=== PATIENT | female | born 1985 | race Asian ===

== ENCOUNTER 2024-07-05 08:52 | Outpatient (AMB) | payer OTHER, SELFPAY ==
--- NOTE | 2024-07-05 08:54 | A.OFFPC_ITS ---
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 Intake Note: New patient visit Pre Coder Required: No Allergies No Known Allergies Allergy (Verified 07/05/24 09:00) Medication List - Last Reconciled 07/05/24 by Ann Marie Mcneil PA-C carbamide peroxide 6.5% (Debrox) 5 drps otic (ears) Q12H 7 days multivitamin 1 tab PO DAILY Tobacco use date assessed: 07/05/24 Dental Screening Dental Screen Date: 07/05/24 Did you have a dental visit in the last 12 months?: Yes Did you have a dental problem in the last 6 months where you did not have access to dental care?: No Was dental information given to patient?: Patient has dentist 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 She has a hx of hyperlipidemia, she has a hx of right ankle fracture and now arthritis. -she does report feeling like her ears b lock sometimes while swimming. No pain, drainage, fevers or chills. No sinus pain or pressure. No decreased hearing. CV: she monitors diet to control cholesterol. Never needed to take medications. She states that the history of hypertension makes her nervous because her has a strong family history of heart attacks. She states that her mother, grandparents and aunts and uncles on her mom's side have had heart attacks. Her brother is currently undergoing a cardiac workup for chest pain. She denies any chest pain, shortness on breath or palpitations. States that she feels overall fine. 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 She has not really had primary care health care and states mostly followed with her air defence officer. 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 Family history: mother- CT, maternal grandmother- CT, maternal grandfather- CT, father- T2DM, Paternal grandmother-T2DM [facility] Medical History (Updated 07/05/24 @ 11:08 by Ann Marie Mcneil, PA-C) Arthritis associated with erythema multiforme High cholesterol Family History (Updated 07/05/24 @ 09:09 by Bhargavi Beltran CMA) Father Asthma High cholesterol Diabetes Mother High cholesterol Diabetes Cardiovascular disease Maternal Grandmother High cholesterol Paternal Grandfather High cholesterol Maternal Grandfather High cholesterol Social History (Updated 07/05/24 @ 09:02 by Bhargavi Beltran CMA) Housing: House Patient Tobacco Use Status: Never used Tobacco e-Cigarette/Vaping Use: Never Used Second Hand Smoke Exposure: No Use of substances other than those prescribed or required for medical reasons: No service: No 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 1. Little interest or pleasure in doing things: not at all 2. Feeling down, depressed, or hopeless: not at all 3. Trouble falling or staying asleep, or sleeping too much: not at all 4. Feeling tired or having little energy: not at all 5. Poor appetite or overeating: not at all 6. Feeling bad about yourself - or that you are a failure or have let yourself or your family down: not at all 7. Trouble concentrating on things, such as reading the newspaper or watching television: not at all 8. Moving or speaking so slowly that other people could have noticed. Or the opposite - being so fidgety or restless that you have been moving around a lot more than usual: not at all 9. Thoughts that you would be better off or of hurting yourself in some way: not at all Total score: 0 Depression Screening Interpretation: Negative Depression Screening Done: Yes 48947 - PHQ-9 Billing: Yes Source: Developed by Drs. Eulalio Tipton, Damaris Saravia, Hernandez Bolden and colleagues, with an educational sarika from [employer]. Thrive Questionnaire Date Thrive assessed: 07/05/24 I am a: Patient What is your living situation today?: I have a steady place to live Within the past 12 months, did the food you bought not last and you didn't have the money to get more?: Never true Within the past 12 months, did you worry whether your food would run out before you got money to buy more?: Never true Do you have trouble paying for medicines?: No Do you have trouble getting transportation to medical appointments?: No Do you have trouble paying your heating and electricity bill?: No Do you have trouble taking care of your child, family member or friend?: No Do you have trouble with day-to-day activities such as bathing, preparing meals, shopping, managing finances, etc.?: No Are you currently unemployed and looking for a job?: No Are you interested in more education?: No Please select the resources that you would like help with: None Currently or been in a relationship where the following occur: No concerns reported THRIVE Score: 0 AUDIT C Alcohol Use Questionnaire (AUDIT-C) 1. How often do you have a drink containing alcohol?: Never 3. How often do you have six or more drinks on one occasion?: Never Total Score: 0 Score Reviewed/Action Taken: Yes SANJEEV-7 AMB Questionnaire SANJEEV-7 Date SANJEEV - 7 assessed: 07/05/24 Feeling nervous, anxious, or on edge: 0 = Not at all Not being able to stop or control worryin = Not at all Worrying too much about different things: 0 = Not at all Trouble relaxin = Not at all Being so restless that it is hard to sit still: 0 = Not at all Becoming easily annoyed or irritable: 0 = Not at all Feeling afraid as if something awful might happen: 0 = Not at all Total SANJEEV-7 score (0-4 normal; 5-9 mild; 10-14 moderate; 15-21 severe): 0 Source: Developed by Drs. Eulalio Tipton, Damaris Saravia, Hernandez Bolden and colleagues, with an educational sarika from [employer]. SANJEEV-7 Assessment Billing SANJEEV-7 Assessment Tool: SANJEEV-7 Assessment 64086 Physical exam (Primary Care) Vital Signs: Last Vital Signs Temp 98.4 F 07/05/24 09:03 Pulse 54 07/05/24 09:03 Resp 12 07/05/24 09:03 BP 94/64 07/05/24 09:03 Pulse Ox 99 07/05/24 09:03 Oxygen Delivery Method Room Air 07/05/24 09:03 BMI result Body Mass Index 26.3 Tobacco/Smoking Status: Tobacco use Status Tobacco use date assessed 07/05/24 07/05/24 09:03 Patient Tobacco Use Status Never used Tobacco 07/05/24 09:03 e-Cigarette/Vaping Use Never Used 07/05/24 09:03 PHQ-9: PHQ-9 Score PHQ-9: Total score 0 07/05/24 09:10 Depression Screening Interpretation: Negative Thrive Assessment: Date of Thrive Assessment Date Thrive assessed 07/05/24 07/05/24 09:10 Currently or been in a relationship where the following occur: No concerns reported Const Orientation/consciousness: patient oriented x3 HENMT Other: TM on right unable to be visualized due to cerumen impaction Ears: hearing grossly normal bilaterally and TM normal on the left General nose exam: No nasal polyps present Face and sinus: Yes sinuses nontender Mouth: Normal oral and palatal mucosa present Eyes Pupils: Equal, round and reactive pupils present EOM: EOMs intact bilaterally Neck Neck: Yes full ROM and Yes no lymphadenopathy Thyroid: Thyroid normal Chest Chest palpation & inspection: normal inspection of the chest Resp Auscultation: clear to auscultation bilaterally Cardio Rate: regular rate Rhythm: regular rhythm Heart sounds: S1 normal heart sound present and S2 normal heart sound present Peripheral pulses: Peripheral pulses 2+ throughout GI Other: Soft, nontender Auscultation: normal bowel sounds Rectal Exam - Female: deferred General: Yes no CVA tenderness Back/Spine/Pelvis Other: Nontender Back: no CVA tenderness Skin General skin exam: no rashes or lesions noted Neuro General: patient oriented x3, gait normal, CN's II-XI intact bilaterally and deep tendon reflexes 2+ bilaterally Cranial nerves: Yes Equal, round and reactive pupils present Motor exam (neuro): 5/5 motor strength present throughout Sensory Exam: double simultaneous stimulation for sensation normal Coordination: [id number]-[id number] test normal and Romberg test negative Extrem General: Yes normal to inspection and Yes full ROM Psych Affect: normal affect Attitude: cooperative Thought process: Normal thought process present Thought content: Normal thought content present Insight: Good insight present (Psych) Judgement: Good judgement present (Psych) Assessment and Plan Assessment & Plan (1) Routine general medical examination at a health care facility: Code(s): Z00.00 - Encounter for general adult medical examination without abnormal findings Plan: Health maintenance reviewed. Labs ordered today. We will follow up pending test results. (2) Hyperlipidemia: Code(s): E78.5 - Hyperlipidemia, unspecified Qualifiers: Hyperlipidemia type: mixed hyperlipidemia Qualified Code(s): E78.2 - Mixed hyperlipidemia Plan: Labs ordered. We will follow up with test results. (3) Family history of CT (myocardial infarction): Code(s): Z82.49 - Family history of ischemic heart disease and other diseases of the circulatory system Plan: She is asymptomatic. She would like the CT calcium screen. (4) Family history of type 2 diabetes mellitus: Code(s): Z83.3 - Family history of diabetes mellitus Plan: Labs ordered including A1c (5) Impacted cerumen, left ear: Code(s): H61.22 - Impacted cerumen, left ear Plan: Debrox drops ordered. Advised to follow up if no improvement or if anything worsens or changes. Patient understands and agrees with the plan. Orders: Orders TSH reflex Free T4 Today E78.5 - Hyperlipidemia, unspecified, Z82.49 - Family history of ischemic heart disease and other diseases of the circulatory system, Z83.3 - Family history of diabetes mellitus Magnesium Today E78.5 - Hyperlipidemia, unspecified, Z82.49 - Family history of ischemic heart disease and other diseases of the circulatory system, Z83.3 - Family history of diabetes mellitus Vitamin D 1,25 dihydroxy Today E78.5 - Hyperlipidemia, unspecified, Z82.49 - Family history of ischemic heart disease and other diseases of the circulatory system, Z83.3 - Family history of diabetes mellitus Hemoglobin A1c Today E78.5 - Hyperlipidemia, unspecified, Z82.49 - Family history of ischemic heart disease and other diseases of the circulatory system, Z83.3 - Family history of diabetes mellitus CT Coronary Calcium Score Today E78.5 - Hyperlipidemia, unspecified, Z82.49 - Family history of ischemic heart disease and other diseases of the circulatory system Complete Blood Count Auto Diff Today E78.5 - Hyperlipidemia, unspecified, Z82.49 - Family history of ischemic heart disease and other diseases of the circulatory system, Z83.3 - Family history of diabetes mellitus Comprehensive [place]. Panel Fast Today E78.5 - Hyperlipidemia, unspecified, Z82.49 - Family history of ischemic heart disease and other diseases of the circulatory system, Z83.3 - Family history of diabetes mellitus Lipid Panel Today E78.5 - Hyperlipidemia, unspecified, Z82.49 - Family history of ischemic heart disease and other diseases of the circulatory system, Z83.3 - Family history of diabetes mellitus Medications: New carbamide peroxide 6.5% (Debrox) 5 drps otic (ears) Q12H 15 mL 0RF 7 days Coding Level of Care Code New Pt Prev Care 18-39yr(52099 Diagnoses Routine general medical examination at a health care facility Z00.00 Mixed hyperlipidemia E78.2 Hyperlipidemia type: mixed hyperlipidemia Family history of CT (myocardial infarction) Z82.49 Family history of type 2 diabetes mellitus Z83.3 Impacted cerumen, left ear H61.22 Additional Codes SNAJEEV-7 Assessment Billing - SANJEEV-7 Assessment Tool: SANJEEV-7 Assessment 27610 ([id number])
[2024-07-05 09:03] VITALS: BP 94/64; PULSE 54; RESP 12; TEMP 36.9; O2SAT 99; BMI 26.3
== END 2024-07-05 09:36 | disposition home or self-care (01) ==
PROVIDERS: PCP Physician Assistant; Visit Provider Physician Assistant
DX: Z00.00 Encounter for general adult medical examination without abnormal findings (principal); E78.2 Mixed hyperlipidemia; H61.22 Impacted cerumen, left ear; Z82.49 Family history of ischemic heart disease and other diseases of the circulatory system; Z83.3 Family history of diabetes mellitus
CPT/HCPCS: 99385

== ENCOUNTER 2024-07-07 08:33 | Outpatient (REF) | payer OTHER, SELFPAY ==
[2024-07-07 08:52] LABS: MANUAL DIFF FLAG NO
[2024-07-07 09:23] LABS: Basophils Percent Auto 0.7 % (0-2); Eosinophils Absolute Auto 0.2 X10*3/uL (0.0-0.4); Eosinophils Percent Auto 4.1 % (0-4); Hematocrit 39.1 % (37.0-47.0); Hemoglobin 13.2 g/dl (12.0-16.0); Imm Gran Abs Auto 0.01 X10*3/uL (0.00-0.03); Imm Gran Pct Auto 0.2 % (0.0-0.4); Lymphocytes Absolute Auto 1.8 X10*3/uL (1.2-4.9); Lymphocytes Percent Auto 30.4 % (20-40); Mean Corpuscular HGB Conc 33.8 g/dl (31.0-35.0); Mean Corpuscular Hemoglobin 27.8 pg (27.0-33.0); Mean Corpuscular Volume 82.3 fL (80.0-98.0); Mean Platelet Volume 10.2 fL (9.4-12.3); Monocytes Absolute Auto 0.4 X10*3/uL (0.1-1.2); Monocytes Percent Auto 6.4 % (2-11); Neutrophils Absolute Auto 3.5 x10*3/uL (2.0-8.3); Neutrophils Percent Auto 58.2 % (45-73); Platelet Count 261 X10*3/uL (160-400); Red Blood Count 4.75 X10*6/uL (4.20-5.50); Red Cell Distribution Width 12.7 % (11.0-16.0); White Blood Count 5.9 X10*3/uL (4.8-10.8)
[2024-07-07 09:31] LABS: Estimated Average Glucose 108 mg/dL; Hemoglobin A1c % 5.4 % (<6.0)
[2024-07-07 10:02] LABS: Alanine Aminotransferase 9 U/L (0-31); Albumin Level 4.4 g/dL (3.5-5.0); Alkaline Phosphatase 44 U/L (39-117); Anion Gap 12 (12-20); Aspartate Amino Transferase 14 U/L (5-31); Bilirubin Total 0.5 mg/dL (0.0-1.0); Blood Urea Nitrogen 9 mg/dL (9-16); Carbon Dioxide 25 mmol/L (22-29); Chloride 107 mmol/L (96-108); Cholesterol 260 mg/dL (<200); Estimated Glomerular Filt Rate > 60; Glucose Fasting 94 mg/dL (60-99); HDL Cholesterol 51 mg/dL (>40); LDL Cholesterol Calculated 192 mg/dL (<100); Magnesium 2.2 mg/dL (1.6-2.6); Sodium 139 mmol/L (135-145); Total Protein 7.6 g/dL (6.5-8.0); Triglycerides 87 mg/dL (<150)
[2024-07-07 10:17] LABS: TSH reflex Free T4 1.85 uIU/mL (0.32-4.0)
[2024-07-13 16:38] LABS: VITAMIN D (1,25 OH) D3 38 pg/mL; Vit D (1,25-Dihydroxy) Total 38 pg/mL (18-72); Vitamin D (1,25 OH) D2 <8 pg/mL
== END 2024-07-07 08:34 | disposition home or self-care (01) ==
LOC: HO.LAB 08:33
PROVIDERS: PCP Physician Assistant; Visit Provider Physician Assistant
DX: E78.5 Hyperlipidemia, unspecified (principal); Z82.49 Family history of ischemic heart disease and other diseases of the circulatory system; Z83.3 Family history of diabetes mellitus; Z13.1 Encounter for screening for diabetes mellitus
CPT/HCPCS: 36415; 80053; 80061; 82652; 83036; 83735; 84443; 85025

== ENCOUNTER 2025-03-27 09:21 | Outpatient (REF) | payer OTHER, SELFPAY ==
[2025-03-27 09:53] LABS: MANUAL DIFF FLAG NO
[2025-03-27 11:17] LABS: Appearance Urine Clear; Color Urine Yellow; Glucose Urine UA Negative (Negative); Leukocyte Esterase Urine Small (1+) (Negative); Nitrite Urine Negative (Negative); PH 6.5 (5.0-9.0); UMIC TRIGGER UACC YES; Urine Blood Negative (Negative); Urine Ketones Negative (Negative); Urine Protein Negative (Neg-Trace)
[2025-03-27 11:18] LABS: Basophils Absolute Auto 0.1 X10*3/uL (0.0-0.2); Eosinophils Absolute Auto 0.3 X10*3/uL (0.0-0.4); Hematocrit 38.5 % (37.0-47.0); Hemoglobin 12.5 g/dl (12.0-16.0); Imm Gran Abs Auto 0.01 X10*3/uL (0.00-0.03); Imm Gran Pct Auto 0.2 % (0.0-0.4); Lymphocytes Absolute Auto 1.8 X10*3/uL (1.2-4.9); Lymphocytes Percent Auto 34.6 % (20-40); Mean Corpuscular HGB Conc 32.5 g/dl (31.0-35.0); Mean Corpuscular Hemoglobin 27.6 pg (27.0-33.0); Mean Platelet Volume 10.2 fL (9.4-12.3); Monocytes Absolute Auto 0.5 X10*3/uL (0.1-1.2); Monocytes Percent Auto 8.7 % (2-11); Neutrophils Absolute Auto 2.6 x10*3/uL (2.0-8.3); Neutrophils Percent Auto 50.5 % (45-73); Platelet Count 260 X10*3/uL (160-400); Red Blood Count 4.53 X10*6/uL (4.20-5.50); Red Cell Distribution Width 13.3 % (11.0-16.0); White Blood Count 5.2 X10*3/uL (4.8-10.8)
[2025-03-27 11:24] LABS: Estimated Average Glucose 105 mg/dL; Hemoglobin A1c % 5.3 % (<6.0)
[2025-03-27 11:31] LABS: Bacteria Urine None Seen (None Seen); Hyaline Casts Urine 0-2 /LPF (0-2); RBC Urine 0-2 /HPF (0-2); UACC Culture Trigger YES; WBC Urine 0-5 /HPF (0-5)
[2025-03-27 12:02] LABS: Alanine Aminotransferase 22 U/L (0-31); Albumin Level 4.6 g/dL (3.5-5.0); Alkaline Phosphatase 42 U/L (39-117); Anion Gap 10 (12-20); Aspartate Amino Transferase 25 U/L (5-31); Bilirubin Total 0.4 mg/dL (0.0-1.0); Blood Urea Nitrogen 8 mg/dL (9-16); Calcium 9.5 mg/dL (8.4-10.2); Carbon Dioxide 28 mmol/L (22-29); Chloride 105 mmol/L (96-108); Cholesterol 260 mg/dL (<200); Estimated Glomerular Filt Rate > 60; Glucose Fasting 84 mg/dL (60-99); HDL Cholesterol 57 mg/dL (>40); LDL Cholesterol Calculated 185 mg/dL (<100); Potassium 4.2 mmol/L (3.3-5.1); Sodium 139 mmol/L (135-145); Total Protein 7.7 g/dL (6.5-8.0); Triglycerides 93 mg/dL (<150)
[2025-03-27 12:07] LABS: TSH reflex Free T4 1.75 uIU/mL (0.32-4.0)
== END 2025-03-27 09:22 | disposition home or self-care (01) ==
LOC: HO.LAB 09:21
PROVIDERS: PCP Physician Assistant; Visit Provider Physician Assistant
DX: Z00.00 Encounter for general adult medical examination without abnormal findings (principal); R73.01 Impaired fasting glucose; Z83.3 Family history of diabetes mellitus; Z82.49 Family history of ischemic heart disease and other diseases of the circulatory system; E78.2 Mixed hyperlipidemia; R30.0 Dysuria
CPT/HCPCS: 36415; 80053; 80061; 81001; 83036; 84443; 85025; 87086

== ENCOUNTER 2025-07-16 08:27 | Outpatient (AMB) | payer OTHER, SELFPAY ==
--- NOTE | 2025-07-16 08:30 | A.OFFVIS_ITS ---
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 The patient reports a history of hyperlipidemia for over ten years, initially identified in her 20s during routine annual blood tests. Her LDL cholesterol levels have been consistently high, with recent measurements showing 192 mg/dL and 185 mg/dL. The patient has attempted lifestyle modifications without significant improvement, and there is a family history of hyperlipidemia on her mother's side. No cardiac symptoms or prior cardiac history. [facility] Medical History (Updated 07/05/24 @ 11:08 by Ann Marie Mcneil PA-C) Arthritis associated with erythema multiforme High cholesterol Surgical History (Updated 07/16/25 @ 08:37 by Josephine Johnson) History of ankle surgery Family History (Updated 07/05/24 @ 09:09 by Bhargavi Beltran CMA) Father Asthma High cholesterol Diabetes Mother High cholesterol Diabetes Cardiovascular disease Maternal Grandmother High cholesterol Paternal Grandfather High cholesterol Maternal Grandfather High cholesterol Social History (Updated 07/16/25 @ 08:38 by Josephine Johnson) Housing: House Alcohol intake: never Patient Tobacco Use Status: Never used Tobacco e-Cigarette/Vaping Use: Never Used Second Hand Smoke Exposure: No service: No 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 Current occupational exposures/hazards: No Cognitive needs: No Hearing needs: No Vision needs: No Review of Systems Const Denies weakness ENT Denies dizziness Card Denies chest pain, Denies chest pain with activity, Denies syncope, Denies rapid heart rate, Denies pedal edema, Denies edema, Denies leg edema, Denies lightheadedness, Denies palpitations, Reports dyspnea, Reports dyspnea on exertion and Denies orthopnea Resp Denies cough, Reports dyspnea and Reports dyspnea on exertion GI Denies hematochezia and Denies change in stool character Musc Denies abnormal gait, Denies muscle cramps, Denies muscle weakness, Denies numbness, Denies radiating pain into limb and Denies tingling Neuro Denies abnormal gait, Denies dizziness, Denies syncope, Denies numbness, Denies tingling and Denies weakness Endo Denies palpitations Physical Exam Vital Signs: Last Vital Signs Pulse 57 07/16/25 08:31 BP 118/60 07/16/25 08:31 BMI result Body Mass Index 24.9 Const General: comfortable and no acute distress Orientation/consciousness: patient oriented x3 HEENT Other: Unremarkable Head: Yes normal to inspection Neck Neck: Yes normal visual inspection Chest Chest palpation & inspection: normal inspection of the chest Resp Auscultation: clear to auscultation bilaterally Cardio Palpation: normal PMI Heart sounds: S1 normal heart sound present, S2 normal heart sound present, no gallops, no murmurs and no rubs GI Palpation (GI): Soft to palpation Back/Spine/Pelvis Other: unremarkable Skin General skin exam: no rashes or lesions noted Neuro General: patient oriented x3 Extrem General: Yes normal to inspection Psych Mental Status: mental status grossly normal Office Procedures EKG Details: EKG with sinus bradycardia at 57/Min; no ischemic changes; [place]. [id number], Complete Assessment & Plan Assessment & Plan (1) Hyperlipidemia: Code(s): E78.5 - Hyperlipidemia, unspecified Category: Medical Qualifiers: Hyperlipidemia type: mixed hyperlipidemia Qualified Code(s): E78.2 - Mixed hyperlipidemia (2) Family history of PR (myocardial infarction): Code(s): Z82.49 - Family history of ischemic heart disease and other diseases of the circulatory system Category: Medical Plan The patient has a history of hyperlipidemia with LDL levels reaching 192 mg/dL and 185 mg/dL in recent tests. A coronary artery calcium score is recommended to assess for plaque buildup, which will guide the decision on initiating statin therapy. Additional tests such as lipoprotein A, APO B, and high-sensitivity CRP are suggested to evaluate cardiovascular risk further. Discussion Notes We discussed the patient's elevated LDL cholesterol levels and the potential need for statin therapy as a preventative measure. The importance of a coronary artery calcium score was emphasized to assess plaque buildup, which would influence treatment decisions. We also reviewed additional tests, including lipo protein A and high-sensitivity CRP, to better understand the patient's cardiovascular risk profile. Patient was informed and verbally consented to the use of an ambient scribe for clinic note documentation during this visit. Orders: Orders CRP High Sensitivity Today E78.2 - Mixed hyperlipidemia, E78.5 - Hyperlipidemia, unspecified Lipoprotein A Today E78.2 - Mixed hyperlipidemia, I25.10 - Atherosclerotic heart disease of [place] coronary artery without angina pectoris CT Coronary Calcium Score Today E78.2 - Mixed hyperlipidemia, I25.10 - Atherosclerotic heart disease of [place] coronary artery without angina pectoris Apolipoprotein B Today E78.2 - Mixed hyperlipidemia Patient Instructions: - Schedule a coronary artery calcium score to assess for plaque buildup. - Complete additional blood tests as ordered, including lipoprotein A and high- sensitivity CRP. - Follow up with the clinic once test results are available to discuss further management options. Coding Level of Care Code New Pt Level 4 (44254) Complex EM visit Add On G2211 Diagnoses Mixed hyperlipidemia E78.2 Hyperlipidemia type: mixed hyperlipidemia Family history of PR (myocardial infarction) Z82.49 CPT Codes EKG - CPT: 02037-Hwedpyarypryisoal, Complete ([id number])
[2025-07-16 08:31] VITALS: BP 118/60; PULSE 57; BMI 24.9
--- OUTSIDE RECORDS SUMMARY | 2025-07-16 09:43 | XMS_ITS | Encounter Summary ---
Author Organization [facility] Address [address] [place] [phone] Phone Care Team Providers Care Associate Store Leader Name Role Phone Pcp, Not Required Primary Care Provider Tamika Garrido MD Primary Care Provider Tamika Malcolm MD Primary Care Provider Encounter Details Date Type Department Care Team (Late st Contact Info) Description 05/27/2021 Transcribe Orders [facility] [address] [place] [address] Natalie Morris MD [address] [place] [id number] Examination for, medical, general (Primary Dx) Social History Tobacco Use Types Packs/Day Years Used Date Smoking Tobacco: Never Smokeless Tobacco: Never Alcohol Use Standard Drinks/Week Comments Never 0 (1 standard drink = 0.6 oz pur e alcohol) Comments No Sex and Gender Information Value Date Recorded Sex Assigned at Female 03/15/2020 1:06 PM EDT Legal Sex Female 12:56 PM EDT Gender Identity Female 03/15/2020 1:06 PM EDT Sexual Orientation Straight 03/15/2020 1: 06 PM EDT documented as of this encounter Plan of Treatment Upcoming Encounters Date Type Department Care Team (Late st Contact Info) Description 06/27/2026 3:00 PM EDT Office Visit [address] [place] [address] Jose AngelJenniferSole [address] [place] [address], [address] [place] [address] [email or web address] documented as of this encounter Results * Chlamydia Trachomatis and Neisseria Gonorrhoeae Nucleic Acid Detection (05/27/2021 10:18 AM EDT) CHLAMYDIA TRACHOMATIS Not Detected Not Detected [facility] NEISERIA GONORRHOEAE Not Detected Not Detected [facility] SPECIMEN TYPE URINE [facility] Urine (Urine) 05/27/2021 10: 18 AM EDT 05/27/2021 10:26 AM EDT Natalie Morris MD NON CULTURE MICROBIO LOGY Final Result [facility] [address] [place] [address] * Quantiferon-TB Gold (05/27/2021 10:18 AM EDT) QuantiFERON-TB Gold Negative Negative [facility] [place] Comment: (NOTE) No interferon-gamma response to M. tuberculosis antigens was detected. Latent infection with M. tuberculosis is unlikely. A single negative result does not exclude infection with M. tuberculosis. In patients at high risk for M.tuberculosis infection, a second test should be considered in accordance with the 2017 ATS/IDSA/CDC Clinical Practice Guidelines for Diagnosis of Tuberculosis in Adults and Children [Fabiáninssilvian JEFF et. al. Clin. Infect. Dis. 2017;64(2):111-115]. The reference range for the 'TB1 Ag minus Nil Result' and 'TB2 Ag minus Nil Result' is an Interferon-gamma level <0.35 IU/mL. TB1 Ag minus Nil 0.00 IU/mL [facility] TB2 Ag minus Nil 0.01 IU/mL [facility] Mitogen minus Nil 8.05 IU/mL [facility] [place] Nil Result 0.01 IU/mL [facility] Blood 05/27/2021 10:1 8 AM EDT 05/27/2021 10:25 AM EDT us Natalie Morris MD LAB BLOOD ORDERABLES Final Result Performing Organization Address City/[facility]/ZIP Co de Phone Number [facility] [address] [place] [address] * Syphilis antibody screen (05/27/2021 10:18 AM EDT) RPR NON-REACTIV E NON-REACTI VE [facility] Blood 05/27/2021 10:1 8 AM EDT 05/27/2021 10:25 AM EDT Natalie Morris MD LAB BLOOD ORDERABLES Final Result Performing Organization Address City/[facility] Co de Phone Number [facility] [address] [place] [address] documented in this encounter Visit Diagnoses Diagnosis Examination for, medical, general- Primary Unspecified general medical examination documented in this encounter Care Teams Associate Store Leader Relationship Specialty Start Date End Date Pcp, Not Required [address] [place] [address] PCP - General 03/15/20 09/24/21 Tamika Malcolm MD [address] [place] [address] [email or web address] PCP - General Internal Medicine 09/25/21 05/10/24 Tamika Malcolm MD [address] [place] [address] [email or web address] PCP - General Internal Medicine 05/11/24 documented as of this encounter Additional Source Comments The information contained in this document represents components of the legal health record. It is not the complete legal health record.[facility]
--- OUTSIDE RECORDS SUMMARY | 2025-07-16 09:43 | XMS_ITS | Clinical Summary ---
Author Organization [facility] Address [address] [place] [address] [place] [address] Phone Care Team Providers Care Job Site Superintendent Name Role Phone Tamika Malcolm MD Primary Care Provider Allergies No known active allergies Medications No known medications Active Problems No known active problems Resolved Problems Problem Noted Date Diagnosed Date Resolved Date Encounter for supervision of normal in first trimester 03/07/2021 04/08/2021 Overview (04/08/2021): OB-CMI score: 0 [02/04/2021] Group PN care? * Rh + GC/Chlam -plan to do next visit PAP 04/04/2019 normal [facility]G Tdap * Flu * Hgb * GTT * 28 wk Repeat RPR * GBS * PPBC * screening - NT normal but corresp blood work not done. Pt declines further offer of screening. Assessment & Plan (04/08/2021 9:04 AM EDT): Patient feels well. Has no concerns. On review of patient's chart, NT screening done by corresponding blood work not done. Patient states she had declined PN genetic screening. NT ultrasound was normal. Additional screening for trisomies offered and declined. Plan anatomic survey at 20 weeks. Immunizations Immunization Administration Dates Next Due COVID-19 (Pre-08/16) Pfizer Vaccine, mRNA, PF Family History Medical History Relation Comments Diabetes Father Heart attack Maternal Aunt Stroke Maternal Aunt Heart attack Maternal Uncle Stroke Maternal Uncle Diabetes Mother Relation Status Comments Father Maternal Aunt Maternal Uncle Mother Social History Tobacco Use Types Packs/Day Years Used Date Smoking Tobacco: Never Smokeless Tobacco: Never Alcohol Use Standard Drinks/Week Comments Never 0 (1 standard drink = 0.6 oz pur e alcohol) Education Answer Date Recorded Are you interested in more education? Not on amalia e 02/19/2023 Are you concerned about learning? Not on file 02/19/2023 No 02/19/2023 No 02/19/2023 Digital Access Answer Date Recorded No 03/20/2023 No 03/20/2023 Reliable internet access at home? Not on file 03/20/2023 Device with a working camera? Not on file Comments No Sex and Gender Information Value Date Recorded Sex Assigned at Female 03/15/2020 1:06 PM EDT Legal Sex Female 12:56 PM EDT Gender Identity Female 03/15/2020 1:06 PM EDT Sexual Orientation Straight 03/15/2020 1: 06 PM EDT Last Filed Vital Signs Vital Sign Reading Time Taken Comments Blood Pressure 110/68 05/16/2024 2:32 PM EDT Pulse - - Temperature - - Respiratory Rate - - Oxygen Saturation - - Inhaled Oxygen Concentration - - Weight 74.5 kg (164 lb 3.2 oz) 05/16/2024 2:32 P M EDT Height 170.2 cm (5' 7 ) 02/04/2021 2:32 PM EDT Body Mass Index 25.72 02/04/2021 2:32 PM EDT Plan of Treatment Upcoming Encounters Date Type Department Care Team (Late st Contact Info) Description 06/27/2026 3:00 PM EDT Office Visit [facility] [address] [place] [address] [address] [facility], [address] [place] [address] [email or web address] Health Maintenance Due Date Last Done Comments DEPRESSION SCREENING 1999 SCREENING FOR DIABETES 2022 INFLUENZA VACCINE (#1) 2025 COVID-19 VACCINE (2024-2 6 season) 2025 11/01/2021, 04/02/2021 PAP SMEAR 05/16/2027 05/16/2024, 04/07/2019 Adult Td,Tdap Booster 07/02/2031 07/02/2021 HEPATITIS C SCREENING Completed 03/07/2021 HIV ONE-TIME SCREENING (18-6 5 YEARS) Completed 03/07/2021 SMOKING STATUS SCREENING (On ce After 26 Yrs) Completed 05/16/2024 HEPATITIS A VACCINES Aged Out No long er eligible based on patient's age to complete this topic HIB VACCINES Aged Out No longer eligi ble based on patient's age to complete this topic MENINGOCOCCAL VACCINES (ACWY) Aged Out No longer eligible based on patient's age to complete this topic MENINGOCOCCAL VACCINES (B) Aged Out N o longer eligible based on patient's age to complete this topic PNEUMOCOCCAL VACCINES (0-49 years) Aged Out No longer eligible b ased on patient's age to complete this topic Medical Devices Not on file Procedures Procedure Name Priority Date/Time Associated Diagnosis Comments PAP TEST Routine 05/16/2024 12:00 AM EDT HEPATITIS C ANTIBODY, QUALITATIVE Routine 03/07/2021 10:45 AM EDT Encounter for supervision of other normal in first trimester Routine screening for STI (sexually transmitted infection) from Last 3 Months or Most Recently Relevant to Health Maintenance Results * Pap Test (05/16/2024 12:00 AM EDT) 05/16/2024 05/17/2024 9:1 7 AM EDT Narrative SEE NARRATIVE - 05/19/2024 9:57 AM EDT [address] [address] Clin Tech: Abby Dickerson MD CHARGE NURSE Cytology Report FINAL DIAGNOSIS A. PAP SMEAR (THIN PREP) CE: SPECIMEN ADEQUACY: Satisfactory for evaluation; transformation zone present. INTERPRETATION: NEGATIVE FOR INTRAEPITHELIAL LESION OR MALIGNANCY. This specimen was analyzed by the automated ThinPrep Imaging System ([employer].) and the selected dodd were reviewed by a fiberglass boat parts finisher. Electronically Signed Out By: MARQUIS Alanis(ASCP) The Pap test is a screening test primarily for squamous cancers and precursors and has associated false-negative and false-positive results. New technologies such as liquid-based preparations may decrease but will not eliminate all false-negative results. Regular sampling and follow-up of unexplained clinical signs and symptoms are recommended to minimize false negative results. PROCEDURES/ADDENDA HPV Testing (Requested) Ordered Date: 05/17/2024 A. PAP SMEAR (THIN PREP) CE: Human Papilloma Virus Test NEGATIVE for high-risk Human Papilloma Virus types 16, 18, 45 and the Other high risk probe set (Includes 31, 33, 35, 39, 51, 52, 56, 58, 59, 66, 68) Note: Testing performed by [employer] HR-HPV analysis. Clinical correlation is advised. This HPV test was performed at [facility], [address] [place] [address]. This test has been FDA approved for both SurePath and ThinPrep cervical cytology specimens. The accuracy and precision of this test for all other specimen sources has been verified in the Cytopathology Laboratory of the [facility] and has not been cleared or approved by the U.S. Food and Drug Administration. Clinical correlation is advised. CLINICAL HISTORY Date of Last Menstrual Period: 05-14-2024 Other Clinical Conditions: Screening Pap SPECIMEN SOURCE A: PAP SMEAR (THIN PREP) CE Patient Name: DESTINEY ROGERS : 1985 (Age: 39) Sex: F Institution[facility] Location: [facility] Date of Collection: 05/16/2024 Date of Reported: 05/19/2024 09:57 Results to: Sandy Méndez MD us Sandy Méndez MD CYTOLOGY ORDERABLES Final Result SEE NARRATIVE * Hepatitis C antibody, qualitative (03/07/2021 10:45 AM EDT) HCV NON-REACTIV E NON-REACTI VE [facility] Blood 03/07/2021 10:4 5 AM EDT 03/07/2021 10:50 AM EDT Sandy Méndez MD LAB BLOOD ORDERABLES Final Result [facility] [address] [place] [address] from Last 3 Months or Most Recently Relevant to Health Maintenance Insurance * Guarantor: Destiney Rogers Account Type Relation to Patient Date of Phone Billing Address Personal/Family Self 1985 [address] [place] [address] [employer] [facility] [employer] CHOICE Member Subscriber Plan / Payer ( fective 2023-Present) Name:Destiney Rogers Relation to Subscriber:Spouse Name:ANGIE LI Date of :1900 (Home) Address: [address] [place] [address] Payer ID:[id number] (NAIC) Type:PPO Address: [address] [place] [address] [place] [address] [employer] [facility] CHOICE Member Subscriber Plan / Payer ( fective 2023-Present) Name:Destiney Rogers Relation to Subscriber:Spouse Name:TRINY LID Chi Date of :1898 (Home) Address: [address] [place] [address] Payer ID:[id number] (NAIC) Type:PPO Address: [address] [place] [address] [place] [address] [facility] [place] [address] [facility] CHOICE * Guarantor: Destiney Rogers Account Type Relation to Patient Date of Phone Billing Address Personal/Family Self 1985 [address] [place] [address] [facility] CHOICE Member Subscriber Plan / Payer (Ef fective 2023-Present) Name:Ghislainecatrachito Destiney Relation to Subscriber:Spouse Name:GELY,ADAMS T Date of :1898 (Home) Address: [address] [place] [address] Payer ID:[id number] (NA) Type:PPO Address: [address] [place] [id number] [place] [address] [facility] CHOICE Member Subscriber Plan / Payer (Ef fective 2023-Present) Name:Destiney Rogers Relation to Subscriber:Spouse Name:ANGIE LI Date of :1898 (Home) Address: [address] [place] [address] Payer ID:[id number] (NA) Type:PPO Address: [address] [place] [id number] [place] [address] [place] [address] [place] [address] Care Teams Job Site Superintendent Relationship Specialty Start Date End Date Tamika Malcolm MD [address] [place] [address] [place] [address] [email or web address] PCP - General Internal Medicine 05/11/24 Additional Source Comments The information contained in this document represents components of the legal health record. It is not the complete legal health record.[facility]
== END 2025-07-16 09:00 | disposition home or self-care (01) ==
LOC: HO.HCS 08:28
PROVIDERS: PCP Physician Assistant; Visit Provider Internal Medicine
DX: E78.2 Mixed hyperlipidemia (principal); Z82.49 Family history of ischemic heart disease and other diseases of the circulatory system
CPT/HCPCS: 93010; 99204

== ENCOUNTER → 2025-07-16 08:27 | Outpatient (BNVA) | payer OTHER, SELFPAY | PROVIDERS: PCP Physician Assistant; Visit Provider Internal Medicine | DX: I25.10 Atherosclerotic heart disease of native coronary artery without angina pectoris (principal) | CPT/HCPCS: 93005 ==

== ENCOUNTER 2025-10-22 09:55 | Outpatient (REF) | payer OTHER, SELFPAY ==
--- OUTSIDE RECORDS SUMMARY | 2025-10-22 10:44 | XMS_ITS | Encounter Summary ---
Author Organization [facility] Address [address] [place] [address] Phone Care Team Providers Care Publications Manager Name Role Phone Pcp, Not Required Primary Care Provider Kelseya Tamika Walker MD Primary Care Provider Tamika Malcolm MD Primary Care Provider Encounter Details Date Type Department Care Team (Late st Contact Info) Description 05/27/2021 Transcribe Orders [facility] [address] [place] [address] Natalie Morris MD [address] [place] [id number] Examination for, medical, general (Primary Dx) [...] Description 06/27/2026 3:00 PM EDT Office Visit [facility] [address] [place] [address] [address] Angel[address]ifer[address]ole [address] [place] [address], [address] [place] [address] [email or web address] documented as of this encounter Results * Chlamydia Trachomatis and Neisseria Gonorrhoeae Nucleic Acid Detection (05/27/2021 10:18 AM EDT) CHLAMYDIA TRACHOMATIS Not Detected Not Detected [facility] NEISERIA GONORRHOEAE Not Detected Not Detected [facility] SPECIMEN TYPE URINE [facility] Urine (Urine) 05/27/2021 10: 18 AM EDT 05/27/2021 10:26 AM EDT us Natalie Morris MD LAB GENERAL ORDERABL ES Final Result [facility] [address] [place] [address] * Quantiferon-TB Gold (05/27/2021 10:18 AM EDT) QuantiFERON-TB Gold Negative Negative [facility] MED/PATH COMBS Comment: (NOTE) No interferon-gamma response to M. [...] Ag minus Nil 0.00 IU/mL [facility]/PATH [facility] TB2 Ag minus Nil 0.01 IU/mL [facility] LAB MED/PATH COMBS Mitogen minus Nil 8.05 IU/mL [facility]/PATH COMBS Nil Result 0.01 IU/mL [facility] MED/PATH [facility] Blood 05/27/2021 10:1 8 AM EDT 05/27/2021 10:25 AM EDT Natalie Morris MD LAB BLOOD ORDERABLES Final Result Performing Organization Address City/[facility]/ZIP Co de Phone Number [facility] [address] [place] [address] * Syphilis antibody screen (05/27/2021 10:18 AM EDT) RPR NON-REACTIV E NON-REACTI VE [facility] Blood 05/27/2021 10:1 8 AM EDT 05/27/2021 10:25 AM EDT Natalie Morris MD LAB BLOOD BKR ORDERA BLES Final Result Performing Organization Address City/[facility]/ZIP Co de Phone Number [address] [address] documented in this encounter Visit Diagnoses Diagnosis Examination for, medical, general- Primary Unspecified general medical examination documented in this encounter Care Teams Publications Manager Relationship Specialty Start Date End Date Pcp, Not Required PCP - General 03/15/20 09/24/21 Tamika Malcolm MD [address] [place] [address] [email or web address] PCP - General Internal Medicine 09/25/21 05/10/24 Tamika Malcolm MD [address] [place] [address] [email or web address] PCP - General Internal Medicine 05/11/24 documented as of this encounter Additional Source Comments The information contained in this document represents components of the legal health record. It is not the complete legal health record.[facility]
--- OUTSIDE RECORDS SUMMARY | 2025-10-22 10:44 | XMS_ITS | Clinical Summary ---
Author Organization [facility] Address [address] [place] [address] [place] [address] Phone Care Team Providers Care Percussion Instrument Tuner Name Role Phone Tamika Malcolm MD Primary [...] Description 06/27/2026 3:00 PM EDT Office Visit [facility] [address] [place] [address] [address] [facility], [address] [place] [address] [email or web address] Health Maintenance Due Date Last Done Comments DEPRESSION SCREENING 1999 SCREENING FOR DIABETES 2022 INFLUENZA VACCINE (#1) 2025 COVID-19 VACCINE (2024-2 6 season) 2025 11/01/2021, 04/02/2021 PAP SMEAR 05/16/2027 05/16/2024, 04/07/2019 Adult Td,Tdap Booster 07/02/2031 07/02/2021 HEPATITIS C SCREENING Completed 03/07/2021 , 03/07/2021 HIV ONE-TIME SCREENING (18-6 5 YEARS) [...] * Pap Test (05/16/2024 12:00 AM EDT) Report [address] [address] Side Seam Tender: Abby Dickerson MD THREAD CHECKER Cytology Report FINAL DIAGNOSIS A. PAP SMEAR (THIN PREP) CE: SPECIMEN ADEQUACY: Satisfactory for evaluation; transformation zone present. INTERPRETATION: NEGATIVE FOR INTRAEPITHELIAL LESION OR MALIGNANCY. This specimen was analyzed by the automated ThinPrep Imaging System ([employer].) and the selected dodd were reviewed by a electrostatic painter. Electronically Signed Out By: MARQUIS Alanis(ASCP) The [...] 59, 66, 68) Note: Testing performed by [employer] HR-HPV analysis. Clinical correlation is advised. This HPV test was performed at [facility], [address] [place] [address]. This test has been FDA approved for both SurePath and ThinPrep cervical cytology specimens. The accuracy and precision of this test for all other specimen sources has been verified in the Cytopathology Laboratory of the [facility] and has not been cleared or approved by the U.S. Food and Drug Administration. Clinical correlation is advised. CLINICAL HISTORY Date of Last Menstrual Period: 05-14-2024 Other Clinical Conditions: Screening Pap SPECIMEN SOURCE A: PAP SMEAR (THIN PREP) CE Patient Name: DESTINEY ROGERS : 1985 (Age: 39) Sex: F Institution: [facility] Location: [facility] Date of Collection: 05/16/2024 Date of Reported: 05/19/2024 09:57 Results to: Sandy Méndez MD [facility] Final Diagnosis A. PAP SMEAR (THIN PREP) CE: SPECIMEN ADEQUACY: Satisfactory for evaluation; transformation zone present. INTERPRETATION: NEGATIVE FOR INTRAEPITHELIAL LESION OR MALIGNANCY. This specimen was analyzed by the automated ThinPrep Imaging System (Get[employer].) and the selected dodd were reviewed by a electrostatic painter. [facility] Results\Inter pretation A. PAP SMEAR (THIN PREP) CE: Human Papilloma Virus TestNEGATIVE for high-risk Human Papilloma Virus types 16, 18, 45 and the Other high risk probe set (Includes 31, 33, 35, 39, 51, 52, 56, 58, 59, 66, 68)Note: Testing performed by [employer] HR-HPV analysis. Clinical correlation is advised. This HPV test was performed at [facility], [address] [place] [address]. This test has been FDA approved for both SurePath and ThinPrep cervical cytology specimens. The accuracy and precision of this test for all other specimen sources has been verified in the Cytopathology Laboratory of the [facility] and has not been cleared or approved by the U.S. Food and Drug Administration. Clinical correlation is advised. [facility] Conversion Type (Conversion Source) 05/16/2024 05/17/2024 9:17 AM EDT us Sandy Méndez MD CYTOLOGY ORDERABLES Edited Result - Final Performing Organization Address [facility]/ZIP Co de Phone Number [address] [address] * Hepatitis C antibody, qualitative (03/07/2021 10:45 AM EDT) HCV NON-REACTIV E NON-REACTI VE [facility] Blood 03/07/2021 10:4 5 AM EDT 03/07/2021 10:50 AM EDT us Sandy Méndez MD LAB BLOOD BKR ORDERABLES F inal Result Performing Organization Address [facility] Co de Phone Number [address] [address] from Last 3 Months or Most Recently Relevant to Health Maintenance Insurance [facility] CHO[facility] CHO[employer] Member Subscriber Plan / Payer ( fective 2023-Present) Name:GhislaineDestiney winston Relation to Subscriber:Spouse Name:ANGIE LI Date of :1898 (Home) Address: [address] [place] [address] Payer ID:[id number] ([facility]) Type:PPO Address: [address] [place] [address] [place] [address] [facility] CHOICE Member Subscriber Plan / Payer ( fective 2023-Present) Name:Kel Destiney Relation to Subscriber:Spouse Name:ANGIE LI Date of :1898 (Home) Address: [address] [place] [address] Payer ID:[id number] (NA) Type:PPO Address: [address] [place] [address] [facility] CHOICE [facility] CHOICE * Guarantor: Destiney Rogers Account Type Relation to Patient Date of Phone Billing Address Personal/Family Self 1985 [address] [place] [address] [facility] CHOICE Member Subscriber Plan / Payer ( fective 2023-) Name:Destiney Rogers Relation to Subscriber:Spouse Name:ANGIE LI Date of :1898 (Home) Address: [address] [place] [address] Payer ID:[id number] (NAIC) Type:PPO Address: [address] [place] [address] * Guarantor: Destiney Rogers Account Type Relation to Patient Date of Phone Billing Address Personal/Family Self 1985 [address] [place] [address] * Guarantor: Destiney Rogers Account Type Relation to Patient Date of Phone Billing Address Personal/Family Self 1985 [address] [place] [address] [place] [address] Care Teams Percussion Instrument Tuner Relationship Specialty Start Date End Date Tamika Malcolm MD [address] [place] [address] [place] [address] [email or web address] PCP - General Internal Medicine 05/11/24 Additional Source Comments The information contained in this document represents components of the legal health record. It is not the complete legal health record.[facility]
== END 2025-10-22 09:56 | disposition home or self-care (01) ==
LOC: HO.HMGCLDS 09:55
PROVIDERS: PCP Physician Assistant; Visit Provider Internal Medicine
DX: I25.10 Atherosclerotic heart disease of native coronary artery without angina pectoris (principal); E78.2 Mixed hyperlipidemia
CPT/HCPCS: 36415; 82172; 83695; 86141